=== PATIENT | male | born 1930 | race Caucasian/White ===

== ENCOUNTER → 2016-09-24 | Outpatient (CLI) | payer MEDICARE | END | disposition home or self-care (01) | LOC: BFHH 09:27 | PROVIDERS: ATTEND Family Medicine | DX: E11.9 Type 2 diabetes mellitus without complications (principal); E55.9 Vitamin D deficiency, unspecified ==

== ENCOUNTER 2017-03-03 09:53 | Inpatient (IN) | payer MEDICARE ==
--- NOTE | 2017-03-03 10:24 | ED.PDOC ---
History of Present Illness - General Chief Complaint: Neuro Symptoms/Deficits Stated Complaint: altered mental status,poss UTI Time Seen by Provider: 03/03/17 10:15 Source: patient, RN notes reviewed, Vital Signs reviewed, family - daughter, EMS Exam Limitations: no limitations - History of Present Illness Initial Comments: Patient presents to ER via EMS. Daughter reports he just has not been acting like himself for the past 3 days. He has been sleeping more and not getting out of bed much for the past 3 days. He also is more confused than normal. She is concerned that he has a UTI. Timing/Duration: constant - over past 3 days Severity: moderate Improving Factors: medication - Tylenol and Ibuprofen helps with c/o hip pain ( chronic) Associated Symptoms: loss of appetite, malaise, shortness of breath - seems to be working harder to breath Allergies/Adverse Reactions: Allergies NO KNOWN ALLERGY Allergy (Verified 03/03/17 10:16) Home Medications: Ambulatory Orders Aspirin [Aspirin Adult Low Dose] 81 mg PO DAILY 03/03/17 Dutasteride-Tamsulosin HCl [Dutasteride/Tamsulosin Hc 0.5-0.4 mg] 1 cap PO DAILY 03/03/17 Memantine HCl-Donepezil HCl [Namzaric 14-10 mg] 1 cap PO DAILY 03/03/17 Metoprolol Tartrate 12.5 mg PO BID 03/03/17 Simvastatin 40 mg PO BEDTIME 03/03/17 Review of Systems - Review of Systems Constitutional: States: malaise, weakness. Denies: chills, fever EENTM: States: no symptoms reported Respiratory: States: short of breath. Denies: cough Cardiology: States: no symptoms reported Gastrointestinal/Abdominal: States: no symptoms reported Musculoskeletal: States: joint pain - Right hip Skin: States: no symptoms reported Neurological: States: see HPI, weakness All other Systems: No Change from Baseline Past Medical History (General) - Patient Medical History Hx Dementia: Yes Hx Cardiac Disorders: Yes - [place] Hx Congestive Heart Failure: No Hx Hypertension: Yes Hx Diabetes: No Surgical History: coronary bypass surgery - Vaccination History Hx Influenza Vaccination: No Hx Pneumococcal Vaccination: No - Social History Hx Tobacco Use: Yes Family Medical History - Family History Father Family History: Unknown Living Status: Unknown Physical Exam - Physical Exam General Appearance: Comfortable, Ill Appearing, Well Developed, Well Nourished Ears, Nose, Throat: hearing grossly normal Neck: non-tender, full range of motion, supple, normal inspection Respiratory: decreased breath sounds - RLL, accessory muscle use Cardiovascular/Chest: normal peripheral pulses, regular rate, rhythm, no gallop , no murmur Peripheral Pulses: radial,right: 2+, radial,left: 2+, dorsalis pedis,right: 2+, dorsalis pedis,left: 2+ Gastrointestinal/Abdominal: normal bowel sounds, non tender, soft, no organomegaly, no pulsatile mass Neurologic: normal mood/affect, other - Oriented X2, slow to answer questions Skin Exam: normal color, warm/dry Comments: Vital Signs 03/03/17 03/03/17 10:10 10:23 Temperature 98.2 F Pulse Rate [ 90 Right Brachial] Respiratory 24 24 Rate Blood Pressure 146/102 [Right Arm] O2 Sat by Pulse 94 L Oximetry He is on 3L of O2 via [place] Progress - Progress Progress: 03/03/17 11:03 Large right pleural effusion. Discussed with Dr. Guerra and Dr. Murillo. Will get sono of chest to yang fluid level so Dr. Murillo can drain the fluid. 03/03/17 11:[address] Guerra and family. Will admit to hospital - Results/Orders Results/Orders: Laboratory Tests 03/03/17 03/03/17 09:34 09:34 WBC 15.9 H RBC 4.91 Hgb 14.3 Hct 42.9 MCV 87.4 MCH 29.1 MCHC 33.3 RDW 14.7 H Plt Count 241 MPV 10.0 Absolute Neuts (auto) 14.20 H Absolute Lymphs (auto) 0.60 L Absolute Monos (auto) 1.10 H Absolute Eos (auto) 0.00 Absolute Basos (auto) 0.00 Neutrophils % 89.2 H Lymphocytes % 3.7 L Monocytes % 6.8 Eosinophils % 0.1 L Basophils % 0.2 Sodium 137 Potassium 3.0 L Chloride 103 Carbon Dioxide 22 Anion Gap 15.0 BUN 28 H Creatinine 1.06 BUN/Creatinine Ratio 26.4 H Random Glucose 104 Serum Osmolality 279.6 Calcium 9.3 Total Bilirubin 1.2 H AST 45 H ALT 35 Alkaline Phosphatase 104 Serum Total Protein 6.8 Albumin 3.5 Globulin 3.3 Albumin/Globulin Ratio 1.1 Awaiting urine sample Blood and sputum cultures ordered. - EKG/XRAY/CT XRAY: chest - Complete opacification R lung with mild midline shift R to L, pleural effusion per Rad Departure - Departure Clinical Impression: Pleural effusion on right, Hypoxia Time of Disposition: 11:23 Disposition: Admit Patient Condition: Poor Departure Forms: ED Discharge - Pt. Copy, Patient Portal Self Enrollment Referrals: Carlos Decker III, MD [Primary Care Provider] - 1-2 Weeks Home Medications: Ambulatory Orders Aspirin [Aspirin Adult Low Dose] 81 mg PO DAILY 03/03/17 Dutasteride-Tamsulosin HCl [Dutasteride/Tamsulosin Hc 0.5-0.4 mg] 1 cap PO DAILY 03/03/17 Memantine HCl-Donepezil HCl [Namzaric 14-10 mg] 1 cap PO DAILY 03/03/17 Metoprolol Tartrate 12.5 mg PO BID 03/03/17 Simvastatin 40 mg PO BEDTIME 03/03/17 Decision To Admit - Decistion To Admit Decision to Admit Reason: Admit from ER Decision to Admit Date: 03/03/17 Decision to Admit Time: 11:19
--- NOTE | 2017-03-03 10:50 | RAD ---
EXAM DESCRIPTION: Chest,1 View CLINICAL HISTORY: Hypoxia/SOB/ decereased BS RLL COMPARISON: 05 January 2008 TECHNIQUE: AP portable chest FINDINGS: Total opacification of the right hemithorax is observed. There is mild shift of the mediastinum from right to left. The heart is within range of normal. The left chest is clear. IMPRESSION: Total opacification of the right hemithorax is observed and suspected to be the result of a large pleural effusion. Electronically signed by: Carlos Gamez MD 03/03/2017 10:49 AM CDT
--- NOTE | 2017-03-03 12:25 | HP ---
HISTORY OF PRESENT ILLNESS: This 86-year-old, white male is admitted to the hospital from the Emergency Room because of worsening shortness of breath and right sided chest pain, especially aggravated upon breathing. He has been losing his appetite for the last week to 10 days, primarily eating cereal in the morning and some soup in the afternoon. Question of some slight weight loss recently noted. Shortness of breath has been increasing to a severe level for the last 5 to 6 days. There is no previous history of severe dyspneic episodes, but he has been exposed in the workplace to fiberglass inhalation when working [employer] years ago. He has also worked and breathed fumes in the oil field. He has not been producing any hemoptysis or sputum and no fever or chills. No nausea or vomiting. No blood in the stool. He is followed closely by Dr. Decker in the [facility]. In the Emergency Room, the patient was found to have almost complete opacification of his right lung suggesting a massive pleural effusion with some midline deviation from right to left of mediastinal structures. He stopped smoking about 20 or 25 years ago. PAST MEDICAL HISTORY: 1. Myocardial infarction about 6 years ago with subsequent stents. 2. Hypertension. 3. Dementia. PAST SURGICAL HISTORY: 1. Coronary artery disease with stents about 6 years ago. No other significant surgeries. FAMILY HISTORY: Positive for cancer and many of them dying of old age. 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 He stopped smoking over 20 years ago from a fairly heavy 1 to 2 pack a day history. REVIEW OF SYSTEMS: GENERAL: Slight weight loss in the last couple of weeks. Otherwise, stable. No fever or chills. HEENT: Hearing is fairly normal. His eyes have some inflammation suggesting "bad eyes" according to the patient. LUNGS: Markedly diminished breath sounds on the right with somewhat diminished even on the left. A few rhonchi on the left. CARDIOVASCULAR: Heart tones are also deviated towards the left, but appear to be fairly good. NECK: Supple. Slight increase of jugular venous distention at about 30 degrees. No rhythm disturbances. GASTROINTESTINAL: Decreased appetite recently. No blood in the stools. EXTREMITIES: Edema recently as well as cold feet and some discoloration, especially the right foot in the past. NEUROLOGIC: Very weak, requiring assistance even in sitting up at this time. PHYSICAL EXAMINATION: VITAL SIGNS: Afebrile. Blood pressure 146/102, decreasing to 116/79 with IV implemented. Respirations 24, short with some expiratory slowing. Pulse oximetry 94% on room air, up to 95% on 2 liters. Weight 95.2 kg estimated from suggested weight. GENERAL: The patient is slightly confused and having difficulty talking in sentences because of his significant dyspnea. Family members are present and are helpful in filling in answers to questions. HEENT: Bilateral conjunctivitis with pus in the eyes needing to be cleaned and treatment started. Hearing appears to be fairly good. LUNGS: Markedly diminished on the right with hardly any breath sounds with midline structures deviated including the heart towards the left. There is some diminished breath sounds on the left with some occasional rhonchi in the base. Expiratory slowing evident and some slight wheezing on exhalation. ABDOMEN: Generally soft with no organomegaly, masses or tenderness. Slightly distended today. EXTREMITIES: Trace of edema with a little web toe, second and third toe on the right foot having discoloration yesterday, but fairly normal today. Fungal infections of the nails, both feet/toes. NEUROLOGIC: The patient is having difficulty speaking in sentences because of dyspnea. No focal neurological deficits are noted. LABORATORY: White count elevated at 15,900 with 89% neutrophils. Hemoglobin 14.3. Chemistries show sodium 137, potassium low at 3, BUN elevated at 28, creatinine 1.06, glucose 104, calcium 9.3, bilirubin 1.2, AST 45, albumin 3.5. Urinalysis pending. Blood cultures pending. Chest x-ray shows complete opacification of the right hemithorax suggesting a large pleural effusion. Usually of the chest is performed for marking for thoracentesis to assist with the significant pleural effusion and associated dyspnea. Significant fluid is evident on ultrasound. ASSESSMENT: 1. Complete opacification of the right hemithorax, probably secondary to a large right pleural effusion of undetermined etiology, under pressure with midline shifting of structures of the mediastinum towards the left. 2. Leukocytosis. 3. Hypokalemia, supplement started. 4. Chronic dementia. 5. History of benign prostatic hypertrophy. 6. History of coronary artery disease with history of stents and myocardial infarction in the past. 7. History of hypertension. 8. History of fiberglass exposure at [employer] a number of years ago. 9. History of chronic tobacco abuse, now stopped, with possible underlying chronic obstructive pulmonary diseased. PLAN: We will continue with current workup. Dr. Murillo is aware of the patient' s admission and will be available for a right sided thoracentesis for diagnostic and therapeutic intervention. Close followup with chest x-ray. Suggest CT scan of the chest afterwards to look for any types of bronchial obstruction versus neoplastic processes. Last chest x-ray was over 1-1/2 years ago and was unremarkable. Continue with ceftriaxone and azithromycin parenterally. Awaiting blood cultures and sputum cultures. Other lab studies pending. Routine DVT prophylaxis to continue. Special followup with Dr. Decker when clinically stable to continue with outpatient management. Current condition is serious. Close followup necessary. [facility][id number] [facility]
--- NOTE | 2017-03-03 12:28 | US ---
EXAM DESCRIPTION: Chest: Ultrasound. CLINICAL HISTORY: LG R side pleural effusion COMPARISON: None Available. TECHNIQUE: The right hemithorax was scanned posteriorly, patient sitting. Optimal site for thoracentesis was marked with permanent marker on the skin prior to the procedure. Transcutaneous scanning: Two-dimensional and Doppler modes. FINDINGS: Large anechoic fluid collection noted in the right pleural space. 3.2 cm from the skin surface to the posterior margin of the fluid collection. IMPRESSION: Ultrasound localization of right pleural effusion with skin marking for subsequent thoracentesis. Electronically signed by: Amandeep Campoverde MD 03/03/2017 12:27 PM CDT
[2017-03-03] MEDS ORDERED: POVIDONE IODINE 10 % 15 ML UD TOP ONE (12:55)
[2017-03-03] MEDS ORDERED: ONDANSETRON INJ 4 MG/2 ML VIAL IV PRN (13:16)
[2017-03-03] MEDS ORDERED: HYDROcodone 5MG/APAP 325MG 1 EA TAB PO PRN (13:16)
[2017-03-03] MEDS ORDERED: SODIUM CHLORIDE 0.9% (FLUSH) 10 ML SYG IV PRN (13:16)
[2017-03-03] MEDS ORDERED: MAGNESIUM HYDROXIDE 30 ML UD PO PRN (13:16)
--- NOTE | 2017-03-03 13:30 | PCM.CORE ---
Physician DVT/VTE - 5 or more Very High Risk Pharmacological: Enoxaparin 40mg SQ Daily
[2017-03-03] MEDS ORDERED: SODIUM CHLORIDE 0.9% 250ML 250 ML ONE (13:53)
[2017-03-03] MEDS ORDERED: SODIUM CHL 0.9% 100ML MINI-BAG 100 ML IVPB ONE (13:54)
[2017-03-03] MEDS ORDERED: cefTRIAXone SODIUM 1 GM VIAL ONE (13:54)
[2017-03-03] MEDS ORDERED: AZITHROMYCIN IV 500 MG VIAL IVPB ONE (13:54)
[2017-03-03] MEDS: POTASSIUM CHLORIDE 10 MEQ TAB PO SCH ×3 (13:57→18:44)
[2017-03-03] MEDS: cefTRIAXone SODIUM 1 GM in SODIUM CHL 0.9% 50ML MIN-BAG+ 50 ML IVPB SCH (13:57)
[2017-03-03] MEDS ORDERED: SODIUM CHL 0.9% 50ML MIN-BAG+ 50 ML IVPB ONE (13:58)
[2017-03-03] MEDS: KCL 20 MEQ/NS 1,000 ML IVS PRN (13:59)
[2017-03-03] MEDS: AZITHROMYCIN IV 500 MG in SODIUM CHLORIDE 0.9% 250ML 250 ML IVPB SCH (14:53)
[2017-03-03] MEDS: IV SET AND CAP CHANGE INJ INJ SCH (14:53)
[2017-03-03] MEDS: TOBRAMYCIN SULF 0.3 % OPHT SOL 1 DROP BOTH_EYES SCH ×3 (14:53→21:27)
[2017-03-03] MEDS ORDERED: METOPROLOL TARTRATE 25 MG TAB ONE (15:36)
[2017-03-03] MEDS ORDERED: POTASSIUM CHLORIDE 10 MEQ TAB PO ONE (15:36)
--- NOTE | 2017-03-03 17:41 | RAD ---
EXAM DESCRIPTION: Chest,1 View CLINICAL HISTORY: 86 years Male, post thoracentesis COMPARISON: March 03, 2017 TECHNIQUE: AP portable chest. FINDINGS: Post thoracentesis imaging demonstrates residual moderate to moderately large right pleural effusion but much improved aeration of the upper aspect of the right lung. I suspect there is significant compressive atelectasis. Left lung is essentially clear with slightly coarsened markings at the lung bases. No pneumothorax is seen. IMPRESSION: Satisfactory chest post thoracentesis with partial reaeration of the right lung with moderate residual atelectasis and pleural fluid. Electronically signed by: Bishop Rogers MD 03/03/2017 5:39 PM CDT
--- NOTE | 2017-03-03 17:45 | CONS ---
DATE OF CONSULTATION: 03/03/17 HISTORY OF PRESENT ILLNESS: The patient is an 86 year-old male who is known to me in the past for skin malignancies presents today with shortness of breath, change in mental status and understanding that he has lost his appetite. He was seen in the Emergency Room and found to have a white-out of his right hemithorax and an ultrasound revealed this to be fluid consistent with a pleural effusion, and I have been asked to consider options for treatment of this. PAST MEDICAL HISTORY: 1. Myocardial infarction with stents. 2. Hypertension. 3. Dementia. PAST SURGICAL HISTORY: He has had no other surgeries. FAMILY HISTORY: Positive for malignancies. 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 He has a long history of tobacco abuse but he quit approximately 20 years ago. REVIEW OF SYSTEMS: There has been a small amount of weight loss with the decrease in appetite, but no abdominal pain, no nausea, vomiting or change in his bowel habits. He has no fever or chills. PHYSICAL EXAMINATION: GENERAL: The patient is awake, alert and confused. CHEST: His right hemithorax has no breath sounds. They are normal on the left side. ABDOMEN: Somewhat distended but non-tender. RECTAL: Examination is deferred. EXTREMITIES: Without clubbing, cyanosis or edema. LABORATORY: White count 15,000 with 89% neutrophils, hemoglobin 14. Chemistries show mildly elevated liver function tests with a bilirubin of 1.2 and AST of 45, potassium 3, creatinine 1.06. RADIOLOGY: Chest x-ray showed the opacification of the right hemithorax and the ultrasound showed this to be significant for fluid. PLAN: The risks, benefits, and alternatives to thoracentesis for this pleural effusion were discussed with the family and they agree for the thoracentesis, and this will be performed now with the fluid sent for appropriate testing. #[id number] [facility]
[2017-03-03] MEDS: IPRATROPIUM/ALBUTEROL 3 ML VIAL INH SCH ×2 (17:54→20:17)
--- NOTE | 2017-03-03 18:04 | OP ---
DATE OF PROCEDURE: 03/03/17 PREOPERATIVE DIAGNOSIS: 1. Right pleural effusion. POSTOPERATIVE DIAGNOSIS: 1. Right pleural effusion. SURGICAL PROCEDURE: 1. Right thoracentesis. SURGEON: Placido Murillo M.D. AUTOMATIC DRY STARCH OPERATOR: None. ANESTHESIA: Local infiltration of 1% Lidocaine. INDICATION FOR SURGERY: The patient is an 86 year-old man who presented to the Emergency Department with shortness of breath and change in his mentation. Workup reveals a large right pleural effusion. After the risks, benefits, and alternatives were discussed with the family, thoracentesis is done at the bedside after the chest was marked with ultrasound. DESCRIPTION OF PROCEDURE: The patient was sat up at the bedside with his arms elevated over a bedside table. The right posterior hemithorax was prepped with Chlorhexidine prep and draped. Local infiltration of anesthesia was obtained with 1% Lidocaine and then the 22 gauge needle is walked over ribs and eventually advanced into the chest and bloody clear fluid was obtained. A stab wound was made with an #11 blade and the thoracentesis needle was advanced in the same direction until fluid was obtained. The catheter was advanced and the needle withdrawn. Then fluid was withdrawn using a three-way stopcock. Specimens were taken. Then the catheter was connected to suction bottles and eventually 2700 mL of fluid was obtained. The catheter was removed. Pressure was held and then a bandaid was applied. The patient tolerated the procedure well. A stat portable chest x-ray was ordered and the fluid was sent for appropriate testing. #[id number] [facility]
[2017-03-03] MEDS: METOPROLOL TARTRATE 25 MG TAB PO SCH ×2 (18:38→18:45)
[2017-03-03] MEDS: ENOXAPARIN SODIUM 40 MG/0.4 ML SYG SUBCU SCH (21:27)
[2017-03-04] MEDS ORDERED: cefTRIAXone SODIUM 1 GM VIAL ONE ×3 (01:31→19:51)
[2017-03-04] MEDS ORDERED: SODIUM CHL 0.9% 50ML MIN-BAG+ 50 ML IVPB ONE ×3 (01:31→19:50)
[2017-03-04] MEDS: cefTRIAXone SODIUM 1 GM in SODIUM CHL 0.9% 50ML MIN-BAG+ 50 ML IVPB SCH ×2 (01:34→13:45)
[2017-03-04] MEDS: TOBRAMYCIN SULF 0.3 % OPHT SOL 1 DROP BOTH_EYES SCH ×6 (01:35→21:18)
[2017-03-04] MEDS: KCL 20 MEQ/NS 1,000 ML IVS PRN ×2 (04:04→16:11)
[2017-03-04] MEDS: OMEPRAZOLE CAP 20 MG CAP PO SCH (05:46)
[2017-03-04] MEDS: IPRATROPIUM/ALBUTEROL 3 ML VIAL INH SCH ×4 (07:27→20:13)
[2017-03-04] MEDS: POTASSIUM CHLORIDE 10 MEQ TAB PO SCH ×2 (08:34→17:20)
[2017-03-04] MEDS: METOPROLOL TARTRATE 25 MG TAB PO SCH ×2 (08:34→17:19)
[2017-03-04] MEDS: ASPIRIN EC 81 MG TAB PO SCH (08:35)
[2017-03-04] MEDS: DUTASTERIDE 0.5 MG CAP PO SCH (08:35)
[2017-03-04] MEDS: TAMSULOSIN 0.4 MG CAP PO SCH (08:38)
[2017-03-04] MEDS ORDERED: [UNRECOGNIZED DRUG - OTHER] PO SCH (09:00)
[2017-03-04] MEDS ORDERED: DUTASTERIDE TAMSULOSIN HCL PO SCH (09:00)
[2017-03-04] MEDS: MEMANTINE HCL DONEPEZIL HCL PO SCH (09:22)
--- NOTE | 2017-03-04 10:31 | CT ---
EXAM DESCRIPTION: Chest w/Contrast CLINICAL HISTORY: blood tinged pleural effusion COMPARISON: None. TECHNIQUE: Postcontrast CT images of the chest are obtained using standard imaging protocol. Images are suboptimal. There is moderate streak artifact from the patient's arms which could not be elevated from this exam. There is also patient breathing motion artifact degrading detailed evaluation. This exam was performed according to our departmental dose-optimization program, which includes automated exposure control, adjustment of the mA and/or kV according to patient size and/or use of iterative reconstruction technique . FINDINGS: Severe coronary artery calcifications are seen. Trace pericardial effusion is noted. Moderate scattered calcified plaque of the thoracic aorta without aneurysmal dilatation is seen. On image 32 of series 2 there is a 2.6 cm soft tissue attenuation mass or lymph node in the right hilar region. No other significant mediastinal or hilar lymphadenopathy is appreciated given the limitations of the exam. Large right pleural effusion is seen in the dependent portion of the chest with some fluid extending along the lateral chest wall. There are nodular areas of increased attenuation in the posterior aspect of the mid to lower right chest with Hounsfield units of 50 compared to the adjacent fluid Hounsfield units of 35. There are 2 soft tissue attenuation nodular densities below the anterior chest wall in the region of the second rib measuring 11 and 10 mm not definitely within the pulmonary parenchyma that could represent pleural-based nodules or possibly lymph nodes. There is a 2.1 cm pleural-based enhancing soft tissue nodule in the posterior left lower lobe. There is compressive atelectasis of the right lower lobe and right middle lobe. Diffuse increased interstitial thickening in the partly aerated right upper lobe is seen. The left lung is also poorly aerated with areas of interstitial thickening in the dependent portion of the upper and lower lobes. Small left pleural effusion is identified. Visualized portion of the upper abdomen shows air and fluid-filled distention of the stomach. There is a somewhat increased attenuation 2.0 cm slightly exophytic probable cyst of the lateral midpole right kidney. The adrenal glands are unremarkable. There is an enlarged lymph node in the right epigastric region measuring 1.5 cm. There are enlarged right periaortic lymph nodes in the upper abdomen measuring up to 2.8 cm diameter. Bridging marginal endplate osteophytes over multiple levels of the thoracic spine suggest diffuse idiopathic skeletal hyperostosis. No aggressive bony lesions are seen. The osseous structures are diffusely osteopenic. IMPRESSION: Large right pleural effusion. Possible soft tissue mass involving the pleural space versus blood or hyperdense material in the pleural space. Enlarged probable lymph nodes in the anterior right upper chest, right hilum, and upper abdomen worrisome for lymphatic spread of neoplastic process versus lymphoma. Pleural-based enhancing 2.1 cm left lower lobe pulmonary nodule. Neoplastic process should be considered. Additional thickening in the right upper lobe and portions of the left lung could represent infectious or inflammatory etiology versus chronic interstitial fibrotic disease. Severe coronary artery disease. Other findings as described above. Electronically signed by: Gino Mayberry MD 03/04/2017 10:30 AM CDT
[2017-03-04] MEDS ORDERED: AZITHROMYCIN IV 500 MG VIAL IVPB ONE (14:37)
[2017-03-04] MEDS ORDERED: SODIUM CHLORIDE 0.9% 250ML 250 ML ONE (14:37)
[2017-03-04] MEDS: AZITHROMYCIN IV 500 MG in SODIUM CHLORIDE 0.9% 250ML 250 ML IVPB SCH (14:42)
--- NOTE | 2017-03-04 18:15 | US ---
PROCEDURE: Bladder Clinical History: urinary retention Indication: Same as above. Comparison: None. Technique: Grayscale evaluation of the urinary bladder was done Findings: The prevoid urinary bladder volume was 377.63 mL. The patient was unable to void. Note is made of moderate amount of mobile hyperechoic debris in the urinary bladder. There is no urinary bladder wall thickening. Impression: The patient was unable to void. Note is made of moderate amount of mobile hyperechoic debris in the urinary bladder Location of Interpretation: Teleradiology. Electronically signed by: Shon Lobato MD 03/04/2017 6:13 PM CDT Workstation: [id number]
--- NOTE | 2017-03-04 18:32 | PN ---
DATE: 03/04/17 SUPERVISING PHYSICIAN: Bishop Gloria M.D. SUBJECTIVE: The patient is lying in his hospital bed. He is slightly dyspneic and he is using abdominal muscles to breathe. He answers simple yes or no questions appropriately and denies any chest pain or shortness of breath at this time. He nods yes to lower abdominal pain. A Medina catheter was attempted earlier this morning and they were unable to place it. The nursing staff has attempted 2 times this afternoon and Dr. Murillo has successfully placed the catheter this evening. OBJECTIVE: VITAL SIGNS: He is afebrile, heart rate 74, blood pressure 147/100, respiratory rate 20, O2 sat is 92% on 3 liters nasal cannula. I's and O's: Intake 1,410, output 120. He also had about 2700 of pleural fluid taken out by Dr. Murillo. RESPIRATORY: Diminished breath sounds throughout especially at the bases. CARDIAC: Regular rate and rhythm. ABDOMEN: Rounded. It is soft. Bowel sounds are positive. He is somewhat tender in the suprapubic area but otherwise non-tender. EXTREMITIES: No cyanosis, clubbing or edema. LABORATORY: White count 14.6, hemoglobin 13.3, hematocrit 40.5, platelets 201, neutrophils 89.7%. Sodium 140, potassium 3.2, chloride 109, carbon dioxide 23, BUN 26, creatinine 1, glucose 99, calcium 8.6. Total bilirubin is 1, AST 71, ALT 49, alkaline phosphatase 94, creatinine kinase 433, CK-MB 11.6. Serum total protein is 5.6, albumin 2.9, TSH 0.52. Sputum culture is pending. Preliminary pleural fluid culture is no growth after 24 hours. Preliminary blood cultures show no growth after 24 hours. RADIOLOGY: CT of the chest post thoracentesis per radiology interpretation shows a large right pleural effusion, possible soft tissue mass involving the pleural space versus blood or hyperdense material in the pleural space and large probable lymph nodes in the anterior right upper chest, right hilum and upper abdomen worrisome for lymphatic spread of neoplastic process versus lymphoma, pleural based enhancing 2.1 cm left lower lobe pulmonary nodule. Neoplastic process should be considered. Additional thickening in the right upper lobe portions of the left lung could represent infectious or inflammatory etiology versus chronic interstitial fibrotic disease. Severe coronary artery disease. ASSESSMENT: 1. Large right pleural effusion status post thoracentesis per Dr. Murillo, general surgeon with the removal of 2700 mL of pleural fluid. 2. Leukocytosis that is slightly improved. 3. Hypokalemia. 4. Chronic dementia. 5. History of benign prostatic hypertrophy. 6. History of coronary artery disease with stents and myocardial infarction in the past. 7. Hypertension. 8. History of fiberglass exposure at [employer] working a number of years ago. 9. History of chronic tobacco abuse now stopped with possible underlying chronic obstructive pulmonary disease. PLAN: We will continue present supportive care. I have ordered routine lab for in the morning. I will discuss with Dr. Murillo if any images need to be taken tomorrow. Dr. Murillo has discussed with the family the patient's CT results and he will talk to the pathologist tomorrow to see where we need to go with those new CT results. We have placed a Medina catheter and there is bloody urine, and we will do a urinalysis and culture that. We will continue with the Ceftriaxone and Azithromycin. Will await the cultures. Otherwise we will continue to monitor him closely and followup as needed. Dr. Gloria is the collaborating physician available for consultation. [facility][id number] [facility]
--- NOTE | 2017-03-04 18:39 | OP ---
DATE OF PROCEDURE: 03/04/17 PREOPERATIVE DIAGNOSIS: 1. Urinary retention. POSTOPERATIVE DIAGNOSIS: 1. Urinary retention. 2. Hematuria. PROCEDURE: 1. Insertion of 20 Maldivian coude Medina catheter. SURGEON: Placido Murillo M.D. HISTOLOGY SUPERVISOR: None. ANESTHESIA: None. FINDINGS AT TIME OF PROCEDURE: Approximately 450 mL of dark bloody urine was obtained. DESCRIPTION OF PROCEDURE: The patient is in the supine position and has had previous attempts for catheterization. He has still not voided. Ultrasound showed at least 350 mL of urine and possibly a mass in his bladder, so rather than transferring I was asked to attempt catheterization. The penis was prepped with Betadine, then approximately 10 mL of lubricant jelly was injected into the urethra. Pressure was held to keep it in place. Then a 20 Maldivian coude catheter, whose balloon had been tested, was introduced without significant difficulty to the hilt. The balloon was then inflated without difficulty and it was pulled back. Then aspiration of the catheter obtained the urine and then the catheter was attached to a bag for drainage. It was attached to the thigh in appropriate manner. The patient tolerate the procedure well. There was no blood loss. #[id number] [facility]
[2017-03-04] MEDS ORDERED: POTASSIUM CHLORIDE 20 MEQ TAB PO ONE (19:09)
[2017-03-04] MEDS: ENOXAPARIN SODIUM 40 MG/0.4 ML SYG SUBCU SCH (21:17)
[2017-03-05] MEDS: LEVALBUTEROL NEBS 1.25 MG/3 ML VIAL INH PRN ×2 (00:15→02:10)
[2017-03-05] MEDS: cefTRIAXone SODIUM 1 GM in SODIUM CHL 0.9% 50ML MIN-BAG+ 50 ML IVPB SCH ×3 (01:45→21:28)
[2017-03-05] MEDS: TOBRAMYCIN SULF 0.3 % OPHT SOL 1 DROP BOTH_EYES SCH ×6 (01:46→21:30)
[2017-03-05] MEDS: OMEPRAZOLE CAP 20 MG CAP PO SCH (06:05)
[2017-03-05] MEDS: POTASSIUM CHLORIDE 10 MEQ TAB PO SCH ×2 (08:57→17:25)
[2017-03-05] MEDS: IPRATROPIUM/ALBUTEROL 3 ML VIAL INH SCH ×3 (08:58→16:45)
[2017-03-05] MEDS: METOPROLOL TARTRATE 25 MG TAB PO SCH ×2 (08:59→17:25)
[2017-03-05] MEDS: MEMANTINE HCL DONEPEZIL HCL PO SCH (09:01)
[2017-03-05] MEDS: TAMSULOSIN 0.4 MG CAP PO SCH (09:06)
[2017-03-05] MEDS: DUTASTERIDE 0.5 MG CAP PO SCH (09:07)
[2017-03-05] MEDS: ASPIRIN EC 81 MG TAB PO SCH (09:07)
[2017-03-05] MEDS: KCL 20 MEQ/NS 1,000 ML IVS PRN (09:09)
--- NOTE | 2017-03-05 11:11 | CT ---
EXAM DESCRIPTION: Abdomen/Pelvis w/Contrast CLINICAL HISTORY: hematuria; ?bladder cancer COMPARISON: None. TECHNIQUE: Transaxial images were obtained with intravenous contrast medium without oral contrast media. Sagittal and coronal reconstruction was performed. FINDINGS: A large right pleural effusion is observed. By basilar parenchymal infiltrate is noted. The liver and spleen are unremarkable. No biliary ductal dilatation is observed. The gallbladder is normal in appearance. No adrenal masses are observed. The exam is mildly degraded by respiratory motion. The pancreas is normal in appearance. Imaging of the kidneys reveals no evidence of hydronephrosis mass or calcification. Scattered simple cysts are detected in the right kidney. Calcific atherosclerotic changes observed in the abdominal aorta. Aneurysmal dilatation of the infrarenal abdominal aorta is observed. It measures 3.11 cm in greatest diameter. The bladder is drained by a Medina catheter. There is some prostatic enlargement. Diverticulosis of the sigmoid colon is observed without evidence of diverticulitis. Degenerative changes are observed most pronounced in the lower lumbar spine. IMPRESSION: 1. A large right pleural effusion is observed. 2. Small simple cysts are detected in the right kidney. 3. A 3.11 cm in diameter infrarenal abdominal aortic aneurysm is observed. Follow-up in 3 years is recommended. 4. Prostatic enlargement Electronically signed by: Carlos Gamez MD 03/05/2017 11:09 AM CDT
--- NOTE | 2017-03-05 11:21 | RAD ---
EXAM DESCRIPTION: Chest,1 View CLINICAL HISTORY: pleural effusion COMPARISON: March 03, 2017 IMPRESSION: Single AP portable upright view of the chest shows enlargement of the cardiomediastinal silhouette. There is increased prominence of the pulmonary vascularity that could indicate developing congestive heart failure or pulmonary edema compared to previous. Moderate to large right pleural effusion mainly along the right lateral chest wall is seen. Projection is somewhat apical lordotic. There is indistinctness of the left hemidiaphragm and could be partly due to patient positioning and image technique versus small left pleural effusion. Electronically signed by: Gino Mayberry MD 03/05/2017 11:20 AM CDT
[2017-03-05] MEDS ORDERED: cefTRIAXone SODIUM 1 GM VIAL ONE ×2 (11:58→20:52)
[2017-03-05] MEDS ORDERED: SODIUM CHL 0.9% 50ML MIN-BAG+ 50 ML IVPB ONE ×3 (11:58→21:27)
--- NOTE | 2017-03-05 13:51 | PN ---
SUPERVISING PHYSICIAN: Bishop Gloria MD DATE: 03/05/17 SUBJECTIVE: The patient is lying in bed. He opens his eyes and answers simple yes/no questions appropriately. Family is at the bedside. Earlier today, he had drop in his oxygen saturation and we had to place him on the BiPAP machine. At this point, he has no complaints of pain. He does not yes to some shortness of breath, but otherwise he looks comfortable in bed. OBJECTIVE: VITAL SIGNS: Afebrile. Heart rate 96. Respiratory rate up to 24 and has been as low as 12. O2 saturation 88% on the BiPAP. LUNGS: Diminished throughout. There is abdominal breathing with some notable shortness of breath. CARDIAC: Regular rate and rhythm. ABDOMEN: Rounded, diffusely tender. It is mostly soft. There is some firmness in the right lower quadrant. Bowel sounds are positive. EXTREMITIES: No cyanosis, clubbing or edema. NEUROLOGIC: He is somewhat lethargic and he answers yes/no questions appropriately. LABORATORY: WBC up to 17.1, hemoglobin 12.7 with hematocrit 39, platelet count 212, neutrophils 91.1%. Sodium 141, potassium 3.6, chloride 113, carbon dioxide 20. Anion gap 11.6, BUN 23, creatinine 0.92, glucose 111, calcium 8.6, AST 49. Creatinine kinase is down from 433 to 251 today. CK-MB is down from 11.6 yesterday to 7.3 today. Pleural fluid testing is pending. Urine culture from his UA from yesterday is no growth after 24 hours. Preliminary sputum culture is normal at 24 hours. Body fluid culture shows final no growth. Preliminary blood cultures show no growth after 48 hours. Bladder ultrasound from yesterday per radiologic interpretation shows the patient was unable to void, note is made of moderate amount of mobile hyperechoic debris in the urinary bladder. Chest x-ray this morning per radiologic interpretation shows a moderate to large right pleural effusion, mainly along the right lateral chest wall seen. CT of the abdomen and pelvis per radiologic interpretation shows a large right pleural effusion, small simple cyst detected in the right kidney, a 3.1 cm in diameter infrarenal abdominal aortic aneurysm, and prostatic enlargement. All other labs and films have been reviewed via the EMR. ASSESSMENT: 1. Large right pleural effusion that persists even though Dr. Murillo, general surgeon, removed 2700 mL of pleural fluid approximately 48 hours ago. 2. Leukocytosis, slightly worsened. 3. Acute respiratory distress with hypoxia presently needing BiPAP for supplemental oxygenation. 4. Abnormal chest CT that may represent cancer of unknown etiology. We will continue to wait for pathology reports. 5. Hypokalemia, resolved with supplementation. 6. Chronic dementia. 7. History of benign prostatic hypertrophy. 8. History of coronary artery disease with stents and myocardial infarction in the past. 9. Hypertension. 10. History of fiberglass exposure at [employer] working a number of years ago. 11. History of chronic tobacco abuse now stopped with possible underlying chronic obstructive pulmonary disease. PLAN: We will continue present supportive care. Dr. Murillo has discussed the patient's condition at length with the family and we are awaiting the pathology results. We will also need to address his code status as we are on the BiPAP at this point. Hospice consultation may be appropriate given the poor prognosis at this time. Routine labs will be ordered for the morning. We will continue to monitor the patient closely and follow as needed. #[id number] [facility]
[2017-03-05] MEDS ORDERED: SODIUM CHLORIDE 0.9% 250ML 250 ML ONE ×2 (14:57→20:52)
[2017-03-05] MEDS ORDERED: AZITHROMYCIN IV 500 MG VIAL IVPB ONE ×3 (14:58→21:27)
[2017-03-05] MEDS: AZITHROMYCIN IV 500 MG in SODIUM CHLORIDE 0.9% 250ML 250 ML IVPB SCH (15:01)
[2017-03-05] MEDS ORDERED: HALOPERIDOL LACTATE INJ 5 MG/ML VIAL IM ONE (17:17)
[2017-03-05] MEDS ORDERED: diphenhydrAMINE HCL 50 MG/ML VIAL IV PRN (17:48)
[2017-03-05] MEDS ORDERED: HALOPERIDOL LACTATE INJ 5 MG/ML VIAL IM PRN (17:49)
[2017-03-05] MEDS ORDERED: cefTRIAXone SODIUM 1 GM in SODIUM CHL 0.9% 50ML MIN-BAG+ 50 ML IVPB SCH (18:00)
[2017-03-05] MEDS ORDERED: diphenhydrAMINE HCL 50 MG/ML VIAL IM ONE (18:30)
[2017-03-05] MEDS: LEVALBUTEROL NEBS 1.25 MG/3 ML VIAL INH SCH (20:25)
[2017-03-05] MEDS: ENOXAPARIN SODIUM 40 MG/0.4 ML SYG SUBCU SCH (21:30)
[2017-03-05] MEDS ORDERED: AZITHROMYCIN IV 500 MG in SODIUM CHLORIDE 0.9% 250ML 250 ML IVPB SCH (22:25)
[2017-03-05] MEDS: MORPHINE SULFATE INJ 10 MG/ML VIAL IV PRN (22:28)
[2017-03-06] MEDS: TOBRAMYCIN SULF 0.3 % OPHT SOL 1 DROP BOTH_EYES SCH ×4 (01:59→12:44)
[2017-03-06] MEDS: MORPHINE SULFATE INJ 10 MG/ML VIAL IV PRN ×4 (03:48→13:12)
[2017-03-06] MEDS: diphenhydrAMINE HCL 50 MG/ML VIAL IV PRN ×2 (04:24→13:12)
[2017-03-06] MEDS: OMEPRAZOLE CAP 20 MG CAP PO SCH (06:46)
[2017-03-06] MEDS ORDERED: SODIUM CHL 0.9% 50ML MIN-BAG+ 50 ML IVPB ONE (07:12)
[2017-03-06] MEDS ORDERED: cefTRIAXone SODIUM 1 GM VIAL ONE (07:12)
--- NOTE | 2017-03-06 07:47 | RAD ---
EXAM DESCRIPTION: Chest,1 View CLINICAL HISTORY: Pleural effusion FINDINGS/ IMPRESSION: Comparison 03/05/2017 Given the differences in technique and positioning, similar appearance Large right pleural effusion with aeration of the small portion of the right upper lobe medially. Mild leftward mediastinal shift similar to previous study. Heart size difficult to determine, likely normal. Atherosclerotic aorta Diffuse interstitial infiltrates throughout both lungs may be a component of acute interstitial pneumonitis as well as some component of chronic interstitial change. No focal alveolar consolidation in the left hemithorax. No left pleural effusion Electronically signed by: Bishop Mariee MD 03/06/2017 7:45 AM CDT
[2017-03-06] MEDS: LEVALBUTEROL NEBS 1.25 MG/3 ML VIAL INH SCH (08:04)
[2017-03-06] MEDS: ASPIRIN EC 81 MG TAB PO SCH (08:34)
[2017-03-06] MEDS: TAMSULOSIN 0.4 MG CAP PO SCH (08:35)
[2017-03-06] MEDS: DUTASTERIDE 0.5 MG CAP PO SCH (08:35)
[2017-03-06] MEDS: METOPROLOL TARTRATE 25 MG TAB PO SCH (08:35)
[2017-03-06] MEDS: POTASSIUM CHLORIDE 10 MEQ TAB PO SCH (08:36)
[2017-03-06] MEDS: MEMANTINE HCL DONEPEZIL HCL PO SCH (08:36)
[2017-03-06] MEDS: cefTRIAXone SODIUM 1 GM in SODIUM CHL 0.9% 50ML MIN-BAG+ 50 ML IVPB SCH (09:10)
[2017-03-06] MEDS: KCL 20 MEQ/NS 1,000 ML IVS PRN (09:49)
[2017-03-06 10:32] VITALS: TEMP 97.1
[2017-03-06] MEDS ORDERED: LEVALBUTEROL NEBS 1.25 MG/3 ML VIAL NEB SCH (12:00)
[2017-03-06] MEDS: IV SET AND CAP CHANGE INJ INJ SCH (12:42)
[2017-03-06 14:25] VITALS: BP 122/76; O2SAT 85
--- NOTE | 2017-03-13 09:31 | DS ---
SUPERVISING PHYSICIAN: Bishop Gloria MD DISCHARGE DIAGNOSIS: 1. Persistent large pleural effusion, unknown etiology, resulting in severe respiratory distress and hypoxemia requiring aggressive noninvasive ventilatory effort assistance with BiPAP and oxygenation supplementation, showing poor response. 2. Leukocytosis, unknown etiology, worsening despite aggressive medical treatment. 3. History of abnormal chest CT with suspicion for cancer, but no cytology for confirmation of that resulting in the patient having severe respiratory distress, thus requiring care and comfort measures on admission to hospice. 4. Chronic dementia. 5. History of benign prostatic hypertrophy. 6. 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 7. Hypertension. 8. History of exposure to fiberglass at [employer] working for a number of years. 9. History of chronic tobacco abuse, having stopped 20 years previously with underlying chronic obstructive pulmonary disease. HISTORY OF PRESENT ILLNESS: Mr. Arita is an 86 year-old male patient that was initially admitted to the hospital on from the Emergency Room due to worsening shortness of breath and right sided chest pain that was exacerbated especially by breathing. He had been losing weight for the last 10 days previously and was primarily eating cereal in the morning and some soup in the afternoon. There was some question of slight weight loss recently noted. Shortness of breath had been increasing to severe levels for at least 5 to 6 days prior to admission. There was no previous history of any severe dyspnea episodes, but he has been exposed in the work place to fiberglass inhalation with working at [employer] for many years. He had also worked and breathed fumes in the oil field. He was not producing any hemoptysis or sputum and had no fever or chills. No nausea or vomiting or blood in the stools. He is followed closely by Dr. Decker in the clinic. In the Emergency Room, he was found to have almost complete opacification of the right lung suggesting pleural effusion with some midline deviation of right to left medial structures. It was noted that he stopped smoking previously 20 to 25 years ago. He was admitted directly from the Emergency Room to the Medical/Surgical floor for further treatment and evaluation. LABORATORY: Initial white count on admission was 15.9. Despite aggressive medical treatment, his white count was refractory to treatment and showed increase and at discharge to hospice was 18,300. Hemoglobin and hematocrit were fairly stable and discharge was 12.5 and 30.4. Platelet count was 196, 000. Differential did show a worsening left shift. Chemistries on admission on hyponatremia and hypokalemia with potassium 3.0. Carbon dioxide 22, BUN 28, creatinine 1.06. On the daily of discharge from Acute Care and admission to hospice, no other laboratories were completed. Final laboratory studies on showed his electrolytes were fairly normal with potassium 3.6, BUN 23, creatinine 0.92, calcium 8.6, magnesium 2.1. Creatinine did show some elevation , but showing some improvement. It was down to 251 at discharge. Troponin was within normal limits at 0.04. BNP 150. TSH 0.52. Urinalysis after Medina catheter was placed showing 300 protein, 40 ketones, large amount of blood, large leukocyte esterase, too numerous to count RBCs with obscured WBCs and 3+ bacteria. Pleural fluid analysis still pending at time of dictation. Pleural LVH showed 627. MICROBIOLOGY: Two sets of blood cultures that were no growth at five days. Pleural fluid cultures showed no growth. Sputum cultures showed no growth. Urine culture showed no growth. RADIOLOGY: Initially in the Emergency Room, he had a chest x-ray and per radiologic interpretation showed total opacification of the right hemithorax, suspected to be result of a large pleural effusion. This was followed up with a chest ultrasound and per radiologic interpretation there was ultrasound localization of right pleural effusion with skin marking for subsequent thoracentesis. He had an additional chest x-ray on the afternoon of 03/03/17 per radiologic interpretation showed satisfactory chest post thoracentesis with partial reaeration of the right lung with moderate residual atelectasis and pleural fluid. He had a CT of the chest on 03/04/17 and per radiologic interpretation showed large right pleural effusion, possible soft tissue mass involving the pleural space versus blood or hyperdense material in the pleural space. Also note of enlarged probable lymph nodes in the anterior right upper chest, right hilum, and upper abdomen worrisome for lymphatic spread of neoplastic process versus lymphoma. Also noted was pleural-based enhancing 2.1 cm left lower lobe pulmonary nodule, neoplastic process should be considered. Additional thickening in the right upper lobe and portions of the left lung could represent infectious or inflammatory etiology versus chronic interstitial fibrotic disease. Please see that report for full details. He also had a bladder ultrasound and per radiologic interpretation note was made of moderate amount of mobile hyperechoic debris in the urinary bladder. The patient was unable to void. He also had abdominopelvic CT with contrast and per radiologic interpretation showed a large right pleural effusion observed, small simple cysts detected in the right kidney, a 3.11 cm in diameter infrarenal abdominal aortic aneurysm observed with prostatic enlargement. Additional single view chest x-ray on 03/05/17 per radiologic interpretation showed enlargement of the cardiomediastinal silhouette, increased prominence of the pulmonary vascularity that could indicate developing congestive heart failure or pulmonary edema, moderate to large right pleural effusion mainly along the right lateral chest wall was seen, indistinctness of the left hemidiaphragm and could be partly due to patient positioning and image technique versus small left pleural effusion. See that result for full details. Final chest x-ray was performed on 03/06/17 and per radiologic interpretation there was a large right pleural effusion with aeration of the small portion of the right upper lobe medially with mild leftward mediastinal shift similar to previous study, diffuse interstitial infiltrates throughout both lungs may be a component of acute interstitial pneumonitis as well as some component of chronic interstitial change. No focal alveolar consolidation in the left hemithorax. No left pleural effusion. No additional studies were completed. CONSULTATION: General surgeon, Dr. Murillo. Please see his results for full details in regards to consultation for thoracentesis. PROCEDURE: Right thoracentesis for right pleural effusion by Dr. Murillo, general surgeon. Please see his operative note for full details. Note is made that 2700 mL of fluid were obtained during the procedure. HOSPITAL COURSE: Mr. Arita is an 86-year-old male patient initially admitted on 03/03/17 as noted above for severe dyspnea secondary to a large pleural effusion. He had a thoracentesis performed by Dr. Murillo on 03/03/17 and was aggressively treated for possible underlying infectious process with antibiotics including azithromycin and Rocephin. Despite aggressive treatment with thoracentesis and antibiotics, he continued to show decline clinically and was requiring ventilatory support efforts with noninvasive ventilation with BiPAP. Initially, his vital signs on admission showed respirations 24, saturation initially 98% on nasal cannula at 2 liters, blood pressure 133/80, temperature 98.2. He progressively clinically declined. On the date of discharge, despite aggressive pulmonary hygiene and care, his was maintaining only 85% on BiPAP at 100% and was showing severe respiratory effort increase. Blood pressure was 122/76, respirations 19 to 20, pulse 103, afebrile at 97.1. After further discussion with Dr. Murillo and the family, decision was made that the patient was not progressing clinically and outlook was grim. Therefore, the patient's family requested that the patient be taken to hospice care inpatient for care and comfort measures only. PLAN: The patient was discharged from Acute Care on 03/06/17 to be admitted to inpatient hospice care through [facility] for care and comfort measures only. Prognosis on discharge was grim with not unexpected. #[id number] [facility]
== END 2017-03-06 14:37 | disposition hospice, inpatient (51) | DRG 188 ==
LOC: ER 09:53 → MS 12:23
PROVIDERS: ADMIT Emergency Medicine; ATTEND Nurse Practitioner Family
PROC: 0W993ZZ Drainage of Right Pleural Cavity, Percutaneous Approach (ICD-10-PCS; principal; 2017-03-03)
PROC: BB24YZZ Computerized Tomography (CT Scan) of Bilateral Lungs using Other Contrast (ICD-10-PCS; 2017-03-04)
PROC: BW21YZZ Computerized Tomography (CT Scan) of Abdomen and Pelvis using Other Contrast (ICD-10-PCS; 2017-03-05)
DX: J90 Pleural effusion, not elsewhere classified (principal); E87.6 Hypokalemia; F03.90 Unspecified dementia, unspecified severity, without behavioral disturbance, psychotic disturbance, mood disturbance, and anxiety; I25.10 Atherosclerotic heart disease of native coronary artery without angina pectoris; I10 Essential (primary) hypertension; J44.9 Chronic obstructive pulmonary disease, unspecified; N40.1 Benign prostatic hyperplasia with lower urinary tract symptoms; R33.9 Retention of urine, unspecified; R31.9 Hematuria, unspecified; I71.4 Abdominal aortic aneurysm, without rupture; R09.02 Hypoxemia; R93.8 Abnormal findings on diagnostic imaging of other specified body structures; I25.2 Old myocardial infarction; Z95.5 Presence of coronary angioplasty implant and graft; Z87.891 Personal history of nicotine dependence; Z79.82 Long term (current) use of aspirin; Z79.899 Other long term (current) drug therapy

== ENCOUNTER 2017-03-06 14:40 | Inpatient (IN) | payer MEDICARE, OTHER ==
[2017-03-06] MEDS ORDERED: SODIUM CHLORIDE 0.9% (FLUSH) 10 ML SYG IV PRN (14:58)
[2017-03-06] MEDS ORDERED: IV SET AND CAP CHANGE INJ INJ SCH (15:00)
[2017-03-06 15:11] VITALS: BP 122/76; TEMP 97.1; O2SAT 85
[2017-03-06] MEDS ORDERED: MORPHINE SULFATE INJ 10 MG/ML VIAL ONE (15:17)
[2017-03-06] MEDS ORDERED: diphenhydrAMINE HCL 50 MG/ML VIAL IV PRN (15:18)
[2017-03-06] MEDS ORDERED: HALOPERIDOL LACTATE INJ 5 MG/ML VIAL IM PRN (15:18)
[2017-03-06] MEDS ORDERED: ONDANSETRON INJ 4 MG/2 ML VIAL IV PRN (15:22)
[2017-03-06] MEDS: MORPHINE SULFATE INJ 10 MG/ML VIAL IV PRN ×2 (15:26→19:46)
[2017-03-06] MEDS ORDERED: MORPHINE SULFATE INJ 10 MG/ML VIAL IV SCH (17:00)
[2017-03-06] MEDS ORDERED: diphenhydrAMINE HCL 50 MG/ML VIAL IV SCH (17:00)
--- NOTE | 2017-03-06 19:36 | PCM.CORE ---
Physician DVT/VTE - Contraindications Mechanical Device Contraindication: Treatment not indicated - hospice care Medication Contraindication: Drug Tx Not Indicated - Nurse DVT Assessment & Total Each Risk Factor Represents 3 Points: Age over 75 years Each Risk Factor Represents 2 Points: Confined to bed >72 hours Each Risk Factor is 1 Point: Obesity (BMI >25) DVT Assessment Score: 6
[2017-03-06] MEDS ORDERED: SODIUM CHLORIDE 0.9% (FLUSH) 10 ML SYG IV SCH (21:00)
--- NOTE | 2017-03-06 21:54 | HP ---
SUPERVISING PHYSICIAN: Bishop Gloria M.D. REASON FOR HOSPICE ADMISSION: Persistent pleural effusion with respiratory failure. HISTORY OF PRESENT ILLNESS: Mr. Arita is an 86 year-old male patient that was initially admitted to the hospital on 03/03/17 for worsening shortness of breath and right sided chest pain that was exacerbated especially by breathing. He has been losing weight for the last 10 days primarily eating cereal in the morning and some soup in the afternoon. There was some question of slight weight loss recently noted. Shortness of breath had been increasing to severe levels over the last 5 to 6 days prior to admission. There was no previous history of any severe dyspnea episodes but he is exposed in the work place to fiberglass inhalation with working at [employer] years ago. He has also worked and breathed fumes in the oil field. He has not been producing any hemoptysis or sputum and has no fever or chills. No nausea or vomiting or blood in the stools. In the Emergency Room, it was found that he had complete opacification of the right lung due to pleural effusion with some midline deviation of right to left medial structures. It was noted that he stopped smoking previously 20 to 45 years ago. He was admitted directly to the Medical/ Surgical floor for further treatment. Consultation was secured with Dr. Murillo on 03/03 and on 03/03 Dr. Murillo performed a thoracentesis on the right obtaining approximately 2700 mL of fluid. Cytology was sent off which has not shown any significant pathological findings. Despite aggressive medical care, the patient continued to show re-enlargement of his pleural effusion and was requiring significant assistance from BiPAP at 100% FiO2 and continues showing severe respiratory distress despite treatment. After a long discussion with the family, the decision was made that the patient had been given adequate aggressive medical treatment and not shown significant improvement, and has a poor prognosis therefore he was changed from Acute Care to care and comfort measures only with hospice care under the direction of [facility]. The patient was admitted to inpatient hospice care. PAST MEDICAL HISTORY: 1. Myocardial infarction 6 years previous with stents. 2. Hypertension. 3. Dementia. PAST SURGICAL HISTORY: 1. Coronary artery disease with stents 6 years previously. CURRENT MEDICATIONS: Please see the electronic medical record for a list of medications. ALLERGIES: NO KNOWN ALLERGIES. CODE STATUS: DO NOT RESUSCITATE. FAMILY HISTORY: Positive for cancers and many dying at old age. 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 He stopped smoking 20 years previously and was a fairly heavy smoker of 1 to 2 packs per day. REVIEW OF SYSTEMS: Unobtainable as the patient is obtunded. PHYSICAL EXAMINATION: VITAL SIGNS: Temperature 97.1, pulse 103, blood pressure 122/76, respirations 19 to 20 and labored with BiPAP showing 85% at 100% FiO2. GENERAL: The patient is obtunded on BiPAP but appears to be comfortable in no distress. CHEST: Lungs severely diminished throughout requiring BiPAP for full assistance with spontaneous respirations at 19 to 25. CARDIOVASCULAR: Regular rate and rhythm, slightly tachycardic. ABDOMEN: Obese, non-tender. Bowel sounds were positive. EXTREMITIES: No cyanosis, clubbing or edema. NEUROLOGIC: He is obtunded and no response with movement to deep pain stimulus but remains with spontaneous respirations. LABORATORY AND RADIOLOGY: There are none available. ASSESSMENT: 1. Persistent large right pleural effusion, unknown etiology resulting in severe respiratory distress and hypoxemia requiring aggressive noninvasive ventilatory effort assistance with BiPAP for oxygenation supplementation. 2. Leukocytosis, unknown etiology showing worsening despite aggressive medical treatment. 3. History of abnormal chest CT with suspicion for cancer but no cytology for confirmation of that resulting in the patient having severe respiratory distress thus requiring care and comfort measures on hospice care. 4. Chronic dementia. 5. History of benign prostatic hypertrophy. 6. 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 7. Hypertension. 8. 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 9. History of chronic tobacco abuse having stopped 20 years previously with underlying chronic obstructive pulmonary disease. PLAN: After a lengthy discussion with the family, it was decided by the family that the patient would wish to be placed on hospice for care and comfort measures only. Consultation with [facility] has been secured and the patient is now being admitted to hospice care for care and comfort measures. Orders have been written by the hospice nurse. Will continue to follow the patient. The patient has a very poor prognosis. He is maintaining minimal saturations even on BiPAP. Will continue to follow the patient and provide assistance as needed with the family until the patient's ultimate which is expected very soon given the prognosis. Until then, will provide care and comfort measures and monitor closely. [id number]
--- NOTE | 2017-03-12 19:56 | DS ---
SUPERVISING PHYSICIAN: Bishop Gloria M.D. DISCHARGE DIAGNOSIS: 1. Respiratory cardiopulmonary failure secondary to persistent large pleural effusion refractory to aggressive medical treatment. Medical diagnosis was large pleural effusion, unknown etiology resulting in hypoxemia requiring aggressive noninvasive ventilatory effort assistance with BiPAP and oxygenation supplementation. 2. Leukocytosis, unknown etiology despite aggressive medical treatment. 3. History of abnormal chest CT suspicious for cancer with cytology at time of pending with no confirmation of results with the patient having severe respiratory distress and ultimate failure after being changed to hospice care for care and comfort measures only. 4. Chronic dementia. 5. History of benign prostatic hypertrophy. 6. History of coronary artery disease with stents. 7. Myocardial infarction. 8. Hypertension. 9. Exposure to fiberglass during a working environment. 10. Chronic tobacco abuse for many years, but 20 years having stopped prior to admission with a degree of underlying chronic obstructive pulmonary disease. HISTORY OF PRESENT ILLNESS: Mr. Arita was an 86 year-old male patient that was initially admitted to the hospital on 03/03/17 for worsening shortness of breath and right sided chest pain that was exacerbated especially by breathing. He had been losing weight for the last 10 days primarily eating cereal in the morning and some soup in the afternoon. There was some question of slight weight loss recently noted. Shortness of breath had been increasing to severe levels over the last 5 to 6 days prior to admission to Acute Care. There was no previous history of any severe dyspnea episodes but he had been exposed to work place environment with fiberglass inhalation while working at [employer] for multiple years. He had also worked and breathed fumes in the oil field. He had not been producing any hemoptysis or sputum and had no fever or chills. No nausea or vomiting or blood in the stools. In the Emergency Room, he was initially found to have complete opacification of the right lung due to pleural effusion with some midline deviation of right to left medial structures. It was noted that he stopped smoking 20 to 25 years previously. He was admitted directly to the Medical/Surgical floor for further treatment. Had a consultation with Dr. Murillo on 03/03 and on 03/03 Dr. Murillo performed a thoracentesis on the right obtaining approximately 2700 mL of fluid. Cytology was sent off which was not shown any significant pathological findings although full results are not available at the time of the patient's . Despite aggressive medical care, the patient continued to show re-enlargement of his pleural effusion and was requiring significant assistance for respiratory efforts with BiPAP at 100% FiO2 with severe respiratory distress despite aggressive treatment. After a long discussion with the family, the decision was made that the patient had been given adequate aggressive medical treatment and was being refractory to that treatment with no significant improvement and had a very poor prognosis, therefore the patient was changed from Acute Care to care and comfort measures only with hospice care under the care of [facility]. The patient was then admitted to inpatient hospice for care and comfort measures only. LABORATORY AND RADIOLOGY: None were completed. HOSPITAL COURSE: The patient was placed in hospice care under [facility]. The patient's family was present at the bedside. The patient's prognosis was poor with not unexpected. The patient remained comfortable on BiPAP until his ultimate on 03/06/17. PLAN: The patient on 03/06/17. Family was present at the bedside. The patient was pronounced by hospice care. The patient's body was taken to the home as arranged. #[id number] [facility]
== END 2017-03-06 20:00 | disposition expired | DRG 189 ==
LOC: MS 14:40
PROVIDERS: ADMIT Nurse Practitioner Family; ATTEND Nurse Practitioner Family
DX: J96.01 Acute respiratory failure with hypoxia (principal); J90 Pleural effusion, not elsewhere classified; R93.8 Abnormal findings on diagnostic imaging of other specified body structures; I10 Essential (primary) hypertension; F03.90 Unspecified dementia, unspecified severity, without behavioral disturbance, psychotic disturbance, mood disturbance, and anxiety; E66.9 Obesity, unspecified; Z66 Do not resuscitate; I25.2 Old myocardial infarction; Z87.891 Personal history of nicotine dependence; Z95.5 Presence of coronary angioplasty implant and graft; D72.829 Elevated white blood cell count, unspecified; N40.0 Benign prostatic hyperplasia without lower urinary tract symptoms; I25.10 Atherosclerotic heart disease of native coronary artery without angina pectoris; Z51.5 Encounter for palliative care